=== PATIENT | female | born 1940 | race Caucasian/White ===

== ENCOUNTER → 2017-06-02 | Outpatient (CLI) | payer MEDICARE ==
[~2017-06-02] MED LIST: ALEN70TA39 PO; CALCTAB68 PO; FIBE0.524 PO; LEVO100T5 PO; METO25TAB PO; VITA200038 PO; XARE20TA PO
--- NOTE | 2017-06-04 09:15 | DEXA ---
AP SPINE L1 - L4 1.358 1.3 3.1 LT FEMUR TOTAL 0.909 -0.8 0.9 RT FEMUR TOTAL 0.894 -0.9 0.8 TOTAL BODY TOTAL OTHER COMMENTS: Normal bone densitometry of the spine. Normal bone densitometry of the left hip. There is low bone density of the right hip. The density of the spine has increased 0.4% since 03/01/2014. The density of the left hip has increased 0.8% since 03/01/2014. The density of the right hip has increased 2.9% since 03/01/2014. The increased density of the spine does not represent a significant change. The increased density of the left hip does not represent a significant change. The increased density of the right hip does represent a significant change. FOLLOW-UP: Recommendation for the next bone density exam: 2 years. CORRINE
== END ==
LOC: M WHC 08:33
PROVIDERS: ATTEND Internal Medicine
DX: N95.1 Menopausal and female climacteric states (principal); M81.0 Age-related osteoporosis without current pathological fracture

== ENCOUNTER → 2017-10-08 | Outpatient (REF) | payer MEDICARE | LOC: M LAB REF 16:28 | DX: I48.0 Paroxysmal atrial fibrillation (principal) | CPT/HCPCS: 80162 ==

== ENCOUNTER → 2018-02-09 | Outpatient (CLI) | payer MEDICARE | LOC: M LRY 12:53 | DX: J98.4 Other disorders of lung (principal); M51.04 Intervertebral disc disorders with myelopathy, thoracic region; R05 Cough | CPT/HCPCS: 71046; G0463 ==

== ENCOUNTER → 2018-02-21 | Outpatient (REF) | payer MEDICARE ==
[2018-02-21 14:04] LABS: DIGOXIN LEVEL 0.4 NG/ML (0.5-2.0)
== END ==
LOC: M LAB REF 12:54
DX: I48.0 Paroxysmal atrial fibrillation (principal)
CPT/HCPCS: 80162

== ENCOUNTER 2018-06-07 13:22 | Emergency (ER) | payer MEDICARE ==
[2018-06-07 14:58] LABS: BASO # 0.1 10^3/uL (0.0-0.2); BASO % 0.6 % (0.0-1.0); EOS # 0.2 10^3/uL (0.0-0.50); EOS % 1.9 % (0.0-3.0); HEMATOCRIT 45.8 % (36.0-47.0); IMMATURE GRANULOCYTE % 0.8 % (0-3.0); LYMPH # 1.7 10^3/uL (1.5-4.5); LYMPH % 17.5 % (24.0-44.0); MEAN CORPUSCULAR HEMOGLOBIN 31.7 pg (27.0-33.0); MEAN CORPUSCULAR HGB CONC 32.8 g/dl (32.0-36.5); MEAN CORPUSCULAR VOLUME 96.8 fl (80.0-96.0); MONO % 10.4 % (0.0-5.0); NEUTROPHILS # 6.5 10^3/uL (1.8-7.7); NEUTROPHILS % 68.8 % (36.0-66.0); PLATELET COUNT, AUTOMATED 533 10^3/uL (150-450); RED BLOOD COUNT 4.73 10^6/uL (4.00-5.40); RED CELL DISTRIBUTION WIDTH 22.1 % (11.5-14.5); WHITE BLOOD COUNT 9.4 10^3/uL (4.0-10.0)
[2018-06-07 15:29] LABS: ANION GAP 8 MEQ/L (8-16); BLOOD UREA NITROGEN 26 MG/DL (7-18); CALCIUM LEVEL 9.5 MG/DL (8.8-10.2); CARBON DIOXIDE LEVEL 27 MEQ/L (21-32); CHLORIDE LEVEL 102 MEQ/L (98-107); CPK CREATINE PHOSPHOKINASE 76 U/L (26-192); CREATININE FOR GFR 1.29 MG/DL (0.55-1.30); DIGOXIN LEVEL 0.5 NG/ML (0.5-2.0); FREE T4 1.76 NG/DL (0.76-1.46); GLOMERULAR FILTRATION RATE 42.9 (>39); GLUCOSE, FASTING 86 MG/DL (70-100); MB/CK RELATIVE INDEX 5.26 (< OR =4); SODIUM LEVEL 137 MEQ/L (136-145); TROPONIN I < 0.02 NG/ML (< 0.10)
[2018-06-07] MEDS ORDERED: ISOVUE-370 76% 100ML VIAL (Q9967) As Ordered ×2 (16:15)
== END 2018-06-07 17:30 | disposition home or self-care (01) ==
LOC: M ED 13:22
DX: J44.9 Chronic obstructive pulmonary disease, unspecified (principal); J84.10 Pulmonary fibrosis, unspecified; R06.02 Shortness of breath; R91.1 Solitary pulmonary nodule; I48.91 Unspecified atrial fibrillation; I10 Essential (primary) hypertension; Z79.899 Other long term (current) drug therapy; Z79.01 Long term (current) use of anticoagulants; Z87.891 Personal history of nicotine dependence
CPT/HCPCS: Q9967

== ENCOUNTER → 2018-06-13 | Outpatient (REF) | payer MEDICARE ==
[2018-06-13 17:53] LABS: DIGOXIN LEVEL 0.2 NG/ML (0.5-2.0)
[2018-06-13 17:53] LABS: C REACTIVE PROTEIN QUANTITATIV 1.68 MG/DL (0.00-0.30)
[2018-06-17 00:06] LABS: ACETYLCHOLINE RCPTOR BINDING A < 0.03 nmol/L (0.00-0.24)
== END ==
LOC: M LAB REF 16:52
DX: C78.01 Secondary malignant neoplasm of right lung (principal); R59.0 Localized enlarged lymph nodes; I48.2 Chronic atrial fibrillation
CPT/HCPCS: 80162

== ENCOUNTER 2018-06-27 19:26 | Inpatient (IN) | payer MEDICARE ==
[2018-06-27] MEDS: AZITHROMYCIN 250 MG TAB PO (21:48)
[2018-06-27] MEDS ORDERED: ACETAMINOPHEN TAB 650MG DOSE (2X325MG) PO (22:00)
[2018-06-27] MEDS: RIVAROXABAN 20 MG TAB (XARELTO) PO (22:20)
[2018-06-27] MEDS: amLODIPine 5 MG TAB PO (22:22)
[2018-06-28] MEDS: NS 1,000 ML IV (00:44)
[2018-06-28 01:06] LABS: LACTIC ACID SEPSIS PROTOCOL 1.4 MMOL/L (0.4-2.0)
[2018-06-28] MEDS: cefTRIAXone SOD 1 GM in D5W MINI-BAG PLUS 50 ML IV (05:13)
[2018-06-28] MEDS: LEVOTHYROXINE 75MCG TABLET (0.075MG) PO (05:13)
[2018-06-28 06:32] LABS: BASO % 0.3 % (0.0-1.0); HEMOGLOBIN 12.8 g/dl (12.0-15.5); IMMATURE GRANULOCYTE % 4.3 % (0-3.0); LYMPH # 0.7 10^3/uL (1.5-4.5); LYMPH % 6.8 % (24.0-44.0); MEAN CORPUSCULAR HEMOGLOBIN 31.1 pg (27.0-33.0); MEAN CORPUSCULAR HGB CONC 33.7 g/dl (32.0-36.5); MEAN CORPUSCULAR VOLUME 92.2 fl (80.0-96.0); MONO # 0.4 10^3/uL (0.0-0.8); MONO % 3.3 % (0.0-5.0); NEUTROPHILS # 9.2 10^3/uL (1.8-7.7); NEUTROPHILS % 85.3 % (36.0-66.0); PLATELET COUNT, AUTOMATED 629 10^3/uL (150-450); RED BLOOD COUNT 4.12 10^6/uL (4.00-5.40); RED CELL DISTRIBUTION WIDTH 19.9 % (11.5-14.5); WHITE BLOOD COUNT 10.7 10^3/uL (4.0-10.0)
[2018-06-28 06:39] LABS: LACTIC ACID SEPSIS PROTOCOL 1.1 MMOL/L (0.4-2.0)
[2018-06-28 06:44] LABS: ANION GAP 11 MEQ/L (8-16); BLOOD UREA NITROGEN 32 MG/DL (7-18); CALCIUM LEVEL 7.9 MG/DL (8.8-10.2); CARBON DIOXIDE LEVEL 21 MEQ/L (21-32); CHLORIDE LEVEL 104 MEQ/L (98-107); CREATININE FOR GFR 1.13 MG/DL (0.55-1.30); FERRITIN 527 NG/ML (8-252); GLUCOSE, FASTING 151 MG/DL (70-100); IRON (FE) 39 UG/DL (50-170); PERCENT SATURATION 17.2 % (13.2-45.0); POTASSIUM SERUM 3.4 MEQ/L (3.5-5.1); SODIUM LEVEL 136 MEQ/L (136-145); TOTAL IRON BINDING CAPACITY 227 UG/DL (250-450)
[2018-06-28 06:52] LABS: REASON FOR REVIEW PLATELET MORPHOLOGY; SLIDE REVIEW Report; SOURCE PERIPHERAL SMEAR
[2018-06-28 06:55] LABS: NT-PRO BNP 10389 PG/ML (<450)
[2018-06-28] MEDS: predniSONE 20 MG TAB PO (08:26)
[2018-06-28] MEDS: MULTIVITAMINS/MINERALS THERAP 1 TAB PO (08:26)
[2018-06-28] MEDS: VITAMIN D 1,000 INTERNATIONAL UNITS TABLET PO (08:27)
[2018-06-28] MEDS: CHLORTHALIDONE 12.5MG PER 1/2 TABLET PO (08:27)
[2018-06-28] MEDS: SPIRONOLACTONE 12.5MG PER 1/2 TABLET PO ×2 (08:29→08:42)
[2018-06-28] MEDS: ATENOLOL 25 MG TAB PO (08:42)
[2018-06-28] MEDS ORDERED: ISOVUE-370 76% 100ML VIAL (Q9967) As Ordered (09:07)
[2018-06-28 09:16] LABS: FOLATE 12.3 NG/ML (>5.4); VITAMIN B12 LEVEL 1104 PG/ML (247-911)
[2018-06-28] MEDS: POTASSIUM CHLORIDE 10 MEQ SR TABLET PO (13:28)
[2018-06-28 14:10] LABS: PROCALCITONIN 0.07 NG/ML (<0.10)
[2018-06-28] MEDS: AZITHROMYCIN 250 MG TAB PO (21:22)
[2018-06-28] MEDS: RIVAROXABAN 20 MG TAB (XARELTO) PO (21:22)
[2018-06-28] MEDS: amLODIPine 5 MG TAB PO (21:23)
[2018-06-29] MEDS: cefTRIAXone SOD 1 GM in D5W MINI-BAG PLUS 50 ML IV (05:20)
[2018-06-29] MEDS: LEVOTHYROXINE 75MCG TABLET (0.075MG) PO (05:21)
[2018-06-29 06:27] LABS: BASO % 0.2 % (0.0-1.0); EOS % 0.2 % (0.0-3.0); HEMATOCRIT 40.2 % (36.0-47.0); HEMOGLOBIN 13.2 g/dl (12.0-15.5); IMMATURE GRANULOCYTE % 2.7 % (0-3.0); LYMPH # 1.1 10^3/uL (1.5-4.5); LYMPH % 5.4 % (24.0-44.0); MEAN CORPUSCULAR HGB CONC 32.8 g/dl (32.0-36.5); MEAN CORPUSCULAR VOLUME 94.4 fl (80.0-96.0); MONO # 1.3 10^3/uL (0.0-0.8); MONO % 6.1 % (0.0-5.0); NEUTROPHILS # 17.4 10^3/uL (1.8-7.7); NEUTROPHILS % 85.4 % (36.0-66.0); PLATELET COUNT, AUTOMATED 680 10^3/uL (150-450); RED BLOOD COUNT 4.26 10^6/uL (4.00-5.40); RED CELL DISTRIBUTION WIDTH 20.5 % (11.5-14.5); WHITE BLOOD COUNT 20.4 10^3/uL (4.0-10.0)
[2018-06-29 06:50] LABS: ANION GAP 9 MEQ/L (8-16); BLOOD UREA NITROGEN 38 MG/DL (7-18); CALCIUM LEVEL 8.3 MG/DL (8.8-10.2); CARBON DIOXIDE LEVEL 23 MEQ/L (21-32); CHLORIDE LEVEL 108 MEQ/L (98-107); CREATININE FOR GFR 1.26 MG/DL (0.55-1.30); GLOMERULAR FILTRATION RATE 44.1 (>39); GLUCOSE, FASTING 104 MG/DL (70-100); SODIUM LEVEL 140 MEQ/L (136-145)
[2018-06-29] MEDS: ATENOLOL 25 MG TAB PO (08:53)
[2018-06-29] MEDS: DIGOXIN 0.125 MG TAB PO (09:00)
[2018-06-29] MEDS: VITAMIN D 1,000 INTERNATIONAL UNITS TABLET PO (09:00)
[2018-06-29] MEDS: MULTIVITAMINS/MINERALS THERAP 1 TAB PO (09:00)
[2018-06-29] MEDS: CHLORTHALIDONE 12.5MG PER 1/2 TABLET PO (09:00)
[2018-06-29] MEDS: SPIRONOLACTONE 12.5MG PER 1/2 TABLET PO (09:00)
[2018-06-29] MEDS: predniSONE 20 MG TAB PO (09:00)
[2018-06-29] MEDS: TIOTROPIUM INHALER/CAPSULE (SPIRIVA) INH (11:26)
[2018-06-29] MEDS: BUDESONIDE 180MCG INHALER (PULMICORT FLEXHALER) INH (11:26)
[2018-06-29] MEDS: AZITHROMYCIN 250 MG TAB PO (20:26)
[2018-06-29] MEDS: RIVAROXABAN 20 MG TAB (XARELTO) PO (20:26)
[2018-06-29] MEDS: amLODIPine 5 MG TAB PO (20:27)
[2018-06-30] MEDS: BUDESONIDE 180MCG INHALER (PULMICORT FLEXHALER) INH ×3 (01:06→08:14)
[2018-06-30 05:44] LABS: BASO # 0.1 10^3/uL (0.0-0.2); BASO % 0.3 % (0.0-1.0); EOS % 0.3 % (0.0-3.0); HEMATOCRIT 41.1 % (36.0-47.0); HEMOGLOBIN 13.4 g/dl (12.0-15.5); IMMATURE GRANULOCYTE % 2.8 % (0-3.0); LYMPH # 1.2 10^3/uL (1.5-4.5); LYMPH % 7.9 % (24.0-44.0); MEAN CORPUSCULAR HEMOGLOBIN 31.2 pg (27.0-33.0); MEAN CORPUSCULAR HGB CONC 32.6 g/dl (32.0-36.5); MEAN CORPUSCULAR VOLUME 95.6 fl (80.0-96.0); MONO % 6.1 % (0.0-5.0); NEUTROPHILS # 12.9 10^3/uL (1.8-7.7); NEUTROPHILS % 82.6 % (36.0-66.0); PLATELET COUNT, AUTOMATED 726 10^3/uL (150-450); RED CELL DISTRIBUTION WIDTH 20.4 % (11.5-14.5); WHITE BLOOD COUNT 15.6 10^3/uL (4.0-10.0)
[2018-06-30 06:04] LABS: ANION GAP 7 MEQ/L (8-16); BLOOD UREA NITROGEN 35 MG/DL (7-18); CALCIUM LEVEL 8.6 MG/DL (8.8-10.2); CARBON DIOXIDE LEVEL 27 MEQ/L (21-32); CHLORIDE LEVEL 107 MEQ/L (98-107); CREATININE FOR GFR 1.13 MG/DL (0.55-1.30); GLUCOSE, FASTING 97 MG/DL (70-100); POTASSIUM SERUM 3.9 MEQ/L (3.5-5.1); SODIUM LEVEL 141 MEQ/L (136-145)
[2018-06-30] MEDS: LEVOTHYROXINE 75MCG TABLET (0.075MG) PO (06:42)
[2018-06-30] MEDS: cefTRIAXone SOD 1 GM in D5W MINI-BAG PLUS 50 ML IV (06:43)
[2018-06-30] MEDS: TIOTROPIUM INHALER/CAPSULE (SPIRIVA) INH ×2 (08:00→08:15)
[2018-06-30] MEDS: IPRATROPIUM 0.5MG/ALBUTEROL 2.5MG INH SOL UD 3ML (DUONEB)(J7620) NEB (08:15)
[2018-06-30] MEDS: ATENOLOL 25 MG TAB PO (08:55)
[2018-06-30] MEDS: MULTIVITAMINS/MINERALS THERAP 1 TAB PO (08:56)
[2018-06-30] MEDS: CHLORTHALIDONE 12.5MG PER 1/2 TABLET PO (08:56)
[2018-06-30] MEDS: SPIRONOLACTONE 12.5MG PER 1/2 TABLET PO (08:56)
[2018-06-30] MEDS: predniSONE 20 MG TAB PO (08:56)
[2018-06-30] MEDS: VITAMIN D 1,000 INTERNATIONAL UNITS TABLET PO (08:58)
== END 2018-06-30 11:47 | disposition home or self-care (01) | DRG 291 ==
LOC: M MSPAV 19:26
PROVIDERS: Internal Medicine
DX: I11.0 Hypertensive heart disease with heart failure (principal); J96.01 Acute respiratory failure with hypoxia; E87.2 Acidosis; J44.1 Chronic obstructive pulmonary disease with (acute) exacerbation; I50.32 Chronic diastolic (congestive) heart failure; E03.9 Hypothyroidism, unspecified; I48.91 Unspecified atrial fibrillation; D47.3 Essential (hemorrhagic) thrombocythemia; Z79.01 Long term (current) use of anticoagulants; Z79.899 Other long term (current) drug therapy; Z87.891 Personal history of nicotine dependence

== ENCOUNTER → 2018-07-05 | Outpatient (CLI) | payer MEDICARE ==
[~2018-07-05] MED LIST changes: -ALEN70TA39 PO; +ALEN70TA57 PO; +AMLO5TAB4; +AMLO5TAB4 PO; +ATEN25TA; +ATEN25TA PO; +BUDE180INH INH; +CALC-170 PO; +CHLO125TA PO; +CHLO25TA PO; +DIGO0.12 PO; +DIGO0.127; +MAGN64TASA PO; +METH125VL IM; +MONT10TA2; +PRED10TA2 PO; +ROCE1INJ6 INJ; +SPIR-10; +SPIR-10 PO; +SYNT75TA PO; +TIOT18INH INH; +VENTAER INH; +VITMTA PO; +ZITHTAB PO
--- NOTE | 2018-07-05 15:51 | REP ---
PET/CT: History: Diagnosing lung cancer. Right lung mass. Comparisons: Comparison CT studies of the chest are from June 28, 2018 and June 07, 2018. TECHNIQUE: 1 hour and for minutes following the intravenous injection of a 7.7 mCi dose of F-18 FDG, three-dimensional PET scintigraphy is acquired from the skull base to the proximal thighs. Triplanar noncontrast CT scanning is acquired through the same anatomic range for attenuation correction, and image registration with scan parameters optimized to minimize radiation exposure to the patient. PET scintigraphy and CT datasets were fused and displayed on a workstation with multiplanar and projection display capability. PET/CT Findings: The known right lower lobe lung nodule is hypermetabolic. Maximum standard uptake value within the lesion is 11.8. There is no other abnormal hypermetabolic uptake within the thorax. There is hypermetabolic uptake unilaterally in the right side of the thyroid gland. Maximum standard uptake value is 9.9. A subtle low density area is seen on accompanying CT. Consider ultrasound-guided right thyroid nodule fine needle aspiration. Head and neck soft tissues are otherwise unremarkable. No adrenal hypermetabolic uptake is seen. No abnormal abdominal or pelvic hypermetabolic uptake focus is appreciated. Lung window settings again demonstrate evidence of fairly extensive pulmonary fibrosis bilaterally. Impression: The known 1.8 cm right lower lobe nodule is hypermetabolic. This must be considered suspicious. Also noted is a hypermetabolic nodule in the right thyroid lobe approximately 14 mm in diameter. Consider histologic sampling of both of these sites. Electronically Signed by Ashwin Gallegos MD 07/05/2018 04:15 P
== END ==
LOC: M PLARAD 07:38
PROVIDERS: ATTEND Internal Medicine
DX: R91.8 Other nonspecific abnormal finding of lung field (principal); E04.1 Nontoxic single thyroid nodule
CPT/HCPCS: 78815; A9552

== ENCOUNTER → 2018-07-21 | Outpatient (REF) | payer MEDICARE ==
[~2018-07-21] MED LIST changes: -AMLO5TAB4; -AMLO5TAB4 PO; +AMLO5TAB6; +AMLO5TAB6 PO
[2018-07-21 15:02] LABS: INR 1.84; PROTHROMBIN TIME 21.6 SECONDS (12.1-14.4)
[2018-07-21 15:03] LABS: PARTIAL THROMBOPLASTIN TIME 43.2 SECONDS (25.4-37.6)
== END ==
LOC: M LAB REF 13:24
PROVIDERS: ATTEND Internal Medicine Pulmonary Disease
DX: Z01.812 Encounter for preprocedural laboratory examination (principal)

== ENCOUNTER → 2018-08-03 | Outpatient (CLI) | payer MEDICARE ==
[~2018-08-03] MED LIST changes: +LIDOCAINE 1% MDV 20ML VIAL As Ordered ONE
--- NOTE | 2018-08-03 10:23 | REP ---
CHEST X-RAY: Single view. HISTORY: Post right lung biopsy. COMPARISON CHEST X-RAY: June 07, 2018. FINDINGS: Diffuse interstitial lung disease persists. There is no evidence of pneumothorax or hydrothorax on either side. Heart is enlarged unchanged. IMPRESSION: No complications seen. Electronically Signed by Ashwin Gallegos MD 08/03/2018 07:37 P
--- NOTE | 2018-08-03 19:39 | REP ---
CT-GUIDED RIGHT LOWER LOBE LUNG BIOPSY The procedure was performed under the direct supervision of Dr. Gallegos. The patient has a history of a 1.8 cm right lower lobe lung nodule which is hypermetabolic seen on a previous PET scan performed on 07/05/2018. The risks and benefits of the procedure were explained to the patient and informed consent was obtained. The right lower lobe lung nodule was localized using CT guidance. The skin was prepped and draped in a sterile fashion. 1% lidocaine was used as a local anesthetic. Using CT guidance a 19/20 gauge coaxial needle biopsy system was inserted and advanced into the nodule. Five core biopsy samples were obtained and sent to lab. The patient tolerated the procedure well and there were no immediate complications. After the appropriate amount of monitored convalescence the patient was discharged from the department. Reviewed by GM Lane 08/03/2018 03:09 P Electronically Signed by Ashwin Gallegos MD 08/03/2018 07:30 P
== END ==
LOC: M RADPRO 08:28
PROVIDERS: ATTEND Internal Medicine Pulmonary Disease
DX: C34.31 Malignant neoplasm of lower lobe, right bronchus or lung (principal); R91.1 Solitary pulmonary nodule; R06.00 Dyspnea, unspecified; J43.1 Panlobular emphysema; Z79.899 Other long term (current) drug therapy

== ENCOUNTER → 2018-08-26 | Outpatient (REF) | payer MEDICARE ==
[~2018-08-26] MED LIST changes: -LIDOCAINE 1% MDV 20ML VIAL As Ordered ONE
== END ==
LOC: M LAB REF 18:43
PROVIDERS: ATTEND Internal Medicine Endocrinology, Diabetes & Metabolism
DX: E04.1 Nontoxic single thyroid nodule (principal)

== ENCOUNTER → 2018-09-15 | Outpatient (CLI) | payer MEDICARE ==
[~2018-09-15] MED LIST changes: +VITA1CAP25 PO
--- NOTE | 2018-09-19 10:47 | RADONC ---
RADIATION ONCOLOGY CONSULTATION NOTE DATE: 09/15/2018 CHART NUMBER: [id number] DIAGNOSIS: Right lower lobe lung cancer. STAGE: IA2, T1b, N0, M0. ECOG PERFORMANCE STATUS: 3. CONSULTATION NOTE: Ms. 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 HISTORY OF PRESENT ILLNESS: The patient has a long history of COPD and is oxygen dependent. She has smoked for 30 years one pack of cigarettes per day, but quit approximately 20 years ago. The patient had been losing weight and overall lost approximately 24 pounds of the past couple of months. She has a history of congestive heart failure as well as COPD. She becomes quite short of breath even after just a few steps. A CAT scan was done on which is thought to show some moderate mediastinal and hilar adenopathy along with a 2 cm enhancing mass at the right lung base. On 07/05/2018 a PET scan was undertaken and confirmed hypermetabolic uptake in the 1.8 cm right lower lobe mass. The SUV value was 11.8. The only other hypermetabolic uptake was seen on the right side of the thyroid gland with an a SUV value of 9.9. The biopsy of the right thyroid nodule was undertaken on 08/29/2018 and was negative for malignancy. The CT-guided biopsy of the right lower lobe lesion done on 08/03/2018 showed keratinizing squamous cell carcinoma which was moderately differentiated. Pulmonary function tests were undertaken on 07/25/2018 and the patient has an SUV value of 1.85 and a diffusion capacity of 28%. She is now being referred to me for discussion of her therapeutic options. PAST MEDICAL HISTORY: As noted above. The patient's past medical history is positive for congestive heart failure as well as COPD. In addition she has a history of atrial fibrillation, hypertension, hypothyroidism, asthma and osteoporosis. The patient has had numerous thyroid problems and received radioactive iodine in the past. She has had cataract surgery and an appendectomy. ALLERGIES: The patient has no known drug allergies. SOCIAL HISTORY: The patient has a long smoking history as noted above. She does not abuse alcohol. FAMILY HISTORY: The patient's family history is negative for lung cancer or other malignancies. REVIEW OF SYSTEMS: The patient's review of systems is positive for physical limitations. She is on nasal oxygen. She reports that she is short of breath and has decreased energy. She claims to have lost 26 pounds over the past 3 months. She denies nausea, vomiting, fevers, chills, night sweats, diplopia, headaches, anxiety or depression, chest pain, urinary or bowel difficulties, bone pain or neurological problems. PHYSICAL EXAMINATION: The patient is an elderly white female who is presenting in a wheelchair on nasal oxygen. HEENT: Exam is normocephalic, atraumatic. Extraocular movements are intact. There is no palpable cervical, supraclavicular, infraclavicular, axillary or inguinal lymphadenopathy present. Her lungs are generally clear to auscultation and percussion. Her heart has regular rate and rhythm. Her abdomen is benign with no hepatosplenomegaly, masses or tenderness. Extremities reveal no clubbing, cyanosis or edema. This patient was deemed not to be a surgical candidate and of course I agree with that. In light of that I think she may be a candidate for SBRT radiation. Unfortunately, we are not set up to deliver SBRT in our institution at this time. Indeed the patient's tumor is located quite peripherally and lower in the lung. It is also quite small at 1.8 cm. I am referring the patient to [facility] for the radiation oncologist expert opinions there. Of course I will defer to their opinion. The other issue of course is the area of the thyroid gland. It has been biopsied negative but that is clearly not a definitive answer. I do not however believe it is related to the 1.8 cm lung nodule. Once again in summary, I have set the patient up to be seen at the radiation oncology center at [facility] in [place]. I have scheduled a followup here following that consultation or SBRT in order to close the loop so to speak. Thank you for allowing us to participate in the care of this very pleasant woman. If could be of any further assistance, please free to contact me anytime. We are available to her to answer any questions or should she need our services in the future. cc: DO Myles Zayas MD
== END ==
LOC: M ONCR 12:57
PROVIDERS: ATTEND Radiology Radiation Oncology
DX: C34.31 Malignant neoplasm of lower lobe, right bronchus or lung (principal); Z99.81 Dependence on supplemental oxygen; Z87.891 Personal history of nicotine dependence